=== PATIENT | male | born 2000 | race Caucasian/White ===

== ENCOUNTER 2024-10-15 09:46 | Emergency (ER) | payer OTHER ==
[~2024-10-15] VITALS: Ht 190.5 cm; Wt 100.0 kg
[2024-10-15 13:08] VITALS: BP 120/80; TEMP 97.8; O2SAT 98
== END 2024-10-15 13:09 | disposition home or self-care (01) ==
LOC: EDBD 09:46 → M ED 09:46
DX: F32.A Depression, unspecified (principal)